=== PATIENT | female | born 1960 | race Caucasian/White ===

== ENCOUNTER → 2023-11-25 | Outpatient (CLI) | payer BC, SELFPAY ==
[2023-11-25 18:31] LABS: Calcium,Total 9.8 mg/dL (8.5-10.1); Ferritin 85 ng/mL (8-252)
[2023-11-27 14:47] LABS: Thyroid Peroxidase AB 51 IU/mL (0-34)
== END | disposition home or self-care (01) ==
PROVIDERS: PCP Physician Assistant Medical; Referring Provider Dermatology Pediatric Dermatology; Visit Provider Dermatology Pediatric Dermatology
DX: L65.0 Telogen effluvium (principal)
CPT/HCPCS: 36415; 82310; 82728; 83970; 86376